=== PATIENT | female | born 1970 | race Hispanic/Latino ===

== ENCOUNTER 2018-04-15 04:39 | Emergency (ER) | payer BC ==
[2018-04-15 04:53] VITALS: O2SAT 99
[2018-04-15] MEDS ORDERED: Iohexol 240 (50 ml) PO ONE (05:07)
[2018-04-15] MEDS ORDERED: Sodium Chloride 0.9% 1,000 ML IV STA (05:07)
[2018-04-15] MEDS ORDERED: Iohexol 240 (50 ml) ONE (05:14)
--- NOTE | 2018-04-15 05:18 | ED PDOC ---
HPI: Abdomen Time Seen by Provider: 04/15/18 04:50 Chief Complaint (Nursing): Abdominal Pain Chief Complaint (Provider): abdominal pain History Per: Patient History/Exam Limitations: no limitations Onset/Duration Of Symptoms: Days (5) Current Symptoms Are (Timing): Still Present Location Of Pain/Discomfort: Diffuse Associated Symptoms: Nausea, Vomiting, Diarrhea Additional Complaint(s): 47 y/o female presents for evaluation of diffuse abdominal pain x 5 days. Associated multiple episode of nonbilious vomiting, diarrhea. Patient states she has been unable to keep anything down. Patient now with pain to lower back and rectal area from forceful vomiting/diarrhea. Denies fever, chest pain, shortness of breath, palpitations, urinary symptoms, recent travel. Patient states coworker with sick with stomach virus. Past Medical History Reviewed: Historical Data, Nursing Documentation, Vital Signs Vital Signs: Last Vital Signs Temp 99.4 F 04/15/18 04:49 Pulse 88 04/15/18 04:49 Resp 17 04/15/18 04:49 BP 130/77 04/15/18 04:49 Pulse Ox 99 04/15/18 05:47 - Medical History PMH: Anxiety, Hypothyroidism Other PMH: Endometriosis - Surgical History Surgical History: No Surg Hx - Family History Family History: States: No Known Family Hx - Living Arrangements Living Arrangements: With Family - Home Medications Home Medications: Ambulatory Orders Medication Instructions Recorded Alprazolam [Alprazolam] 0.5 mg PO TID PRN 10/28/15 Cyanocobalamin (Vitamin B-12) 5,000 mcg PO DAILY 10/28/15 [Vitamin B12] Ergocalciferol (Vitamin D2) 50,000 unit PO QWK 10/28/15 [Vitamin D2] Fluoxetine HCl [Fluoxetine HCl] 20 mg PO DAILY 10/28/15 Levothyroxine [Synthroid] 25 mcg PO DAILY 10/28/15 Oxycodone HCl/Acetaminophen 1 tab PO Q4H PRN 10/28/15 [Percocet 10-325 mg Tablet] Prochlorperazine [Compazine] 10 mg PO Q6H PRN 10/28/15 Prochlorperazine [Compazine] mg PO DAILY 10/28/15 - Allergies Allergies/Adverse Reactions: Allergies Allergy/AdvReac Type Severity Reaction Status Date / Time prochlorperazine AdvReac HEADACHE Verified 04/15/18 05:34 [From Compazine] Review of Systems ROS Statement: Except As Marked, All Systems Reviewed And Found Negative Gastrointestinal: Positive for: Nausea, Vomiting, Abdominal Pain, Diarrhea Physical Exam - Reviewed Nursing Documentation Reviewed: Yes Vital Signs Reviewed: Yes - Physical Exam Appears: Positive for: Well, Non-toxic, No Acute Distress Head Exam: Positive for: ATRAUMATIC, NORMAL INSPECTION, NORMOCEPHALIC Skin: Positive for: Normal Color Eye Exam: Positive for: Normal appearance ENT: Positive for: Normal ENT Inspection Cardiovascular/Chest: Positive for: Regular Rate, Rhythm Respiratory: Positive for: Normal Breath Sounds Gastrointestinal/Abdominal: Positive for: Bowel Sounds, Soft, Tenderness ( diffuse) Back: Positive for: Normal Inspection Rectal: Positive for: Hemorrhoids (3 external hemorrhoids; pink. Tender to touch ) Extremity: Positive for: Normal ROM Neurologic/Psych: Positive for: Alert, Oriented (x3) - Laboratory Results Result Diagrams: 04/15/18 05:30 04/15/18 05:30 - ECG O2 Sat by Pulse Oximetry: 99 - Progress ED Course And Treament: labs, urine, CT abd/pelvis, IV fluids, IV pepcid, IV toradol, IV zofran, PO bentyl [place] 120 Percocet 10/325mg tablets prescribed 04/07, 90 Alprazolom 0.5mg tablets prescribed on 03/24 Disposition - Clinical Impression Clinical Impression: Abdominal pain, Vomiting and diarrhea - Disposition Disposition Time: 06:00 Condition: STABLE Forms: [email or web address] [facility] (Chinese) Patient Signed Over To: Ursula Muro Handoff Comments: pending labs, CT, re-eval
[2018-04-15 05:48] LABS: BASO % 0.2 % (0.0-2.0); EOS # 0.3 K/uL (0.0-0.7); EOS % 2.9 % (0.0-4.0); HEMOGLOBIN 12.7 g/dL (12.0-16.0); LYMPH # 1.4 K/uL (1.0-4.3); LYMPH % 12.9 % (20.0-40.0); MEAN CELL VOLUME 89.9 fl (81.0-99.0); MEAN CORPUSCULAR HEMOGLOBIN 30.8 pg (27.0-31.0); MEAN CORPUSCULAR HGB CONC 34.2 g/dL (33.0-37.0); MEAN PLATELET VOLUME 7.9 fl (7.2-11.7); MONO # 0.9 K/uL (0.0-0.8); MONO % 8.9 % (0.0-10.0); NEUT # 7.8 K/uL (1.8-7.0); NEUT % 75.1 % (50.0-75.0); RBC 4.12 Mil/uL (3.80-5.20); RED CELL DISTRIBUTION WIDTH 13.2 % (11.5-14.5); WHITE BLOOD COUNT 10.5 K/uL (4.8-10.8)
[2018-04-15 05:57] LABS: SQUAMOUS EPITHIAL < 1 /hpf (0-5); URINE BILIRUBIN NEGATIVE (NEGATIVE); URINE BLOOD LARGE (NEGATIVE); URINE CLARITY CLEAR (Clear); URINE COLOR YELLOW (YELLOW); URINE GLUCOSE (UA) NEG (Normal); URINE LEUKOCYTE ESTERASE NEG Leu/uL (Negative); URINE PROTEIN 30 mg/dL (NEGATIVE); URINE UROBILINOGEN 0.2-1.0 mg/dL (0.2-1.0)
[2018-04-15 06:01] LABS: ALBUMIN 3.2 g/dL (3.5-5.0); ALT/SGPT 29 U/L (9-52); AST/SGOT 26 U/L (14-36); BLOOD UREA NITROGEN 12 mg/dl (7-17); CALCIUM 8.6 mg/dL (8.4-10.2); GFR NON-AFRICAN AMERICAN > 60; LIPASE 183 U/L (23-300)
[2018-04-15] MEDS ORDERED: Potassium CL 10 MEQ/50 ML 50 ML ONE ×2 (06:18→08:09)
--- NOTE | 2018-04-15 06:57 | ED PDOC ---
- Laboratory Results Result Diagrams: 04/15/18 05:30 04/15/18 05:30 - ECG O2 Sat by Pulse Oximetry: 99 (RA) Pulse Ox Interpretation: Normal Medical Decision Making Medical Decision Making: Time: 0600 --- Patient with abdominal pain, intractable vomiting and diarrhea, pending CT, re-assessment and final disposition. Time: 0700 -- Patient endorsed to Dr. Garcia, pending CT, re-assessment and final disposition. Scribe Attestation: Documented by Rasheed Torres acting as a scribe for Ursula Muro MD. Provider Scribe Attestation: All medical record entries made by the Scribe were at my direction and personally dictated by me. I have reviewed the chart and agree that the record accurately reflects my personal performance of the history, physical exam, medical decision making, and the department course for this patient. I have also personally directed, reviewed, and agree with the discharge instructions and disposition. Disposition - Clinical Impression Clinical Impression: Colitis, Proctitis, Abdominal pain, Hypokalemia - POA Present On Arrival: None - Disposition Referrals: Silvio Persaud MD [Primary Care Provider] - 04/16/18 Gael Nur MD [Staff Provider] - 04/16/18 Disposition: Transfer of Care Disposition Time: 07:00 Condition: FAIR Additional Instructions: Return if not better in 3 days. Prescriptions: Ciprofloxacin HCl [Cipro] 500 mg PO BID 7 Days tab Ibuprofen [Motrin] 600 mg PO TID 7 Days tab Metronidazole [Flagyl] 500 mg PO TID 7 Days tablet Instructions: Hypokalemia, Proctitis, Acute Abdomen (Belly Pain) Forms: [employer] (Kyrgyz), [facility] ED School/Work Excuse Patient Signed Over To: Jeremi Garcia
[2018-04-15] MEDS: Potassium CL 10 MEQ/50 ML 50 ML IVPB SCH ×2 (07:08→08:12)
--- NOTE | 2018-04-15 07:49 | ED PDOC ---
- Laboratory Results Result Diagrams: 04/15/18 05:30 04/15/18 05:30 Interpretation Of Abn Labs: urine Rbc, 2.8 k - ECG O2 Sat by Pulse Oximetry: 99 (RA) Pulse Ox Interpretation: Normal - Progress ED Course And Treament: 700: Took over care. Fu on imaging. Getting K for K of 2.8. Here with abd pain, diarrhea, vomiting. 953: Stable. Colitis and proctitis. Pt. tolerates po. Comfortable going home. Will fu with pcp. Will rx cipro and flagyl. AAOx3. Disposition - Clinical Impression Clinical Impression: Colitis, Proctitis, Abdominal pain, Hypokalemia - POA Present On Arrival: None - Disposition Referrals: Silvio Persaud MD [Primary Care Provider] - 04/16/18 Gael Nur MD [Staff Provider] - 04/16/18 Disposition: Routine/Home Disposition Time: 09:59 Condition: FAIR Additional Instructions: Return if not better in 3 days. Prescriptions: Ciprofloxacin HCl [Cipro] 500 mg PO BID 7 Days tab Ibuprofen [Motrin] 600 mg PO TID 7 Days tab Metronidazole [Flagyl] 500 mg PO TID 7 Days tablet Instructions: Proctitis, Acute Abdomen (Belly Pain), Hypokalemia Forms: [facility] (Occitan), [facility] Ex[facility]
[2018-04-15] MEDS ORDERED: Sodium Chloride 0.9% 50 ML IV ONE (07:51)
[2018-04-15] MEDS ORDERED: Iohexol 300 100 ML IJ ONE (07:51)
--- NOTE | 2018-04-15 09:24 | CARD ---
APPROVED REPORT Date of service: 04/15/2018 <Conclusion> Normal sinus rhythm Minimal voltage criteria for LVH, may be normal variant ST & T wave abnormality, consider anterior ischemia Prolonged QT Abnormal ECG
--- NOTE | 2018-04-15 09:52 | CT ---
Date of service: 04/15/2018 PROCEDURE: CT Abdomen and Pelvis with contrast HISTORY: Abdominal pain, vomiting, diarrhea COMPARISON: None. TECHNIQUE: CT scan of the abdomen and pelvis was performed after administration of intravenous contrast. Oral contrast was administered. Coronal and sagittal reformatted images were obtained. Contrast dose: 95 cc Omnipaque 300 Radiation dose: Total exam DLP = 274.95 mGy-cm. This CT exam was performed using one or more of the following dose reduction techniques: Automated exposure control, adjustment of the mA and/or kV according to patient size, and/or use of iterative reconstruction technique. FINDINGS: LOWER THORAX: There is linear atelectasis in the left lateral lung base. The visualized right lung is clear. LIVER: Normal in size with homogeneous enhancement. No gross lesion or ductal dilatation. GALLBLADDER AND BILE DUCTS: No calcified gallstones. PANCREAS: Normal in size with homogeneous enhancement. No gross lesion or ductal dilatation. SPLEEN: Normal in size with homogeneous enhancement. ADRENALS: No discrete nodule. KIDNEYS AND URETERS: Normal in size with homogeneous enhancement. No hydronephrosis. No solid mass. VASCULATURE: No aortic aneurysm. BOWEL: The small bowel loops are normal in caliber. There is severe circumferential mural thickening throughout the colon and in the rectum. APPENDIX: Normal appendix. PERITONEUM: Small amount of free fluid in the pelvis. . No free air. LYMPH NODES: No enlarged lymph nodes. BLADDER: Grossly normal in appearance. REPRODUCTIVE: The uterus is normal in size. There is a 4.0 x 2.8 cm cyst in the right ovary. BONES: No acute fracture. OTHER FINDINGS: None. IMPRESSION: Findings are compatible with acute nonspecific infectious/ inflammatory hand colitis and proctitis. No evidence for perforation or bowel obstruction. 4.0 x 2.8 cm cyst in the right ovary. Adjacent fluid which may represent partial rupture of the cyst with
[2018-04-15 10:22] VITALS: BP 108/78; PULSE 81; RESP 19; TEMP 98.5
== END 2018-04-15 10:32 | disposition home or self-care (01) ==
LOC: H.ER 04:39
DX: K52.9 Noninfective gastroenteritis and colitis, unspecified (principal); E87.6 Hypokalemia; K62.89 Other specified diseases of anus and rectum; R10.9 Unspecified abdominal pain; K64.8 Other hemorrhoids; E03.9 Hypothyroidism, unspecified; F41.9 Anxiety disorder, unspecified
CPT/HCPCS: 74177; 80053; 81003; 81025; 83690; 85025; 87086; 93005; 96361; 96374; 96375; 96376; 99284; J1885; J2405; J3480; J7030; Q9966; Q9967